=== PATIENT | female | born 1970 | race Caucasian/White ===

== ENCOUNTER 2018-10-01 12:30 | Outpatient (CLI) | payer BC ==
--- NOTE | 2018-10-01 12:53 | RAD ---
EXAM: Chest Two Views 10/01/2018 12:50 PM HISTORY: Chronic cough COMPARISON: None. FINDINGS: Heart: Normal in size and contour. Pulmonary vessels: Normal. Costophrenic angles: Clear. Lungs: No confluent pneumonia, overt edema, pleural effusion, or other acute process. Pneumothorax: None. Osseous structures:No acute osseous abnormality is evident. There is mild thoracic scoliosis. There i s scattered degenerative and osteoarthritic change present. Additional findings: None. IMPRESSION: No significant acute intrathoracic disease.
== END 2018-10-01 12:31 | disposition home or self-care (01) ==
LOC: BICRAD 12:30
PROVIDERS: ATTEND Internal Medicine
DX: R05 Cough (principal)
CPT/HCPCS: 71046

== ENCOUNTER 2018-12-25 15:01 | Outpatient (CLI) | payer BC ==
--- NOTE | 2018-12-25 15:59 | ULT ---
EXAM: Right lower extremity venous Doppler US HISTORY: Right lower extremity pain, long airplane flight FINDINGS: Grayscale, color-flow, Doppler evaluation, spectral analysis of the right lower extremity venous stru ctures is performed with 2-D imaging. The right common femoral, superficial femoral, popliteal, posterior tibial, proximal greater saphenous and profunda femoral veins are imaged. There is normal luminal compressibility, flow, and augmentation the visualized deep venous structures of the right lower extremity. IMPRESSION: No evidence of a deep vein thrombosis in the right lower extremity.
== END 2018-12-25 15:02 | disposition home or self-care (01) ==
LOC: SCSULT 15:01
PROVIDERS: ATTEND Orthopaedic Surgery
DX: S93.401A Sprain of unspecified ligament of right ankle, initial encounter (principal); S82.831A Other fracture of upper and lower end of right fibula, initial encounter for closed fracture

== ENCOUNTER 2018-12-26 11:42 | Outpatient (CLI) | payer BC ==
--- NOTE | 2018-12-26 13:24 | RAD ---
LUMBAR SPINE SERIES TWO VIEWS: History: Low back pain, worsening over the last 2-3 years with weakness down both legs. FINDINGS: The vertebral bodies maintain normal height. Tiny osteophytes are seen along the course of the spine with minimal disc narrowing at L5-S1. Some mild degenerative facet changes are noted. Pedicles appear intact. Slight rotatory scoliosis which could possibly be positional. IMPRESSION: Minimal arthritic changes of the spine. POS: [facility]
== END 2018-12-26 11:43 | disposition home or self-care (01) ==
LOC: BICRAD 11:42
PROVIDERS: ATTEND Internal Medicine
DX: M54.5 Low back pain (principal); M47.816 Spondylosis without myelopathy or radiculopathy, lumbar region; E55.9 Vitamin D deficiency, unspecified; R19.7 Diarrhea, unspecified; R20.2 Paresthesia of skin; R29.898 Other symptoms and signs involving the musculoskeletal system
CPT/HCPCS: 36415; 72100; 80053; 82306; 82607; 82785; 85025; 86160; 86225; 86235; 86376

== ENCOUNTER 2019-03-10 08:17 | Outpatient (CLI) | payer BC ==
--- NOTE | 2019-03-10 13:46 | RAD ---
SMALL BOWEL SERIES: HISTORY: Chronic diarrhea. FINDINGS: The patient was given oral contrast by mouth. There is transit of the contrast through the small bow el entering the colon at 1 hour. No evidence for small bowel dilatation. No mucosal thickening. No stricture, ulcer, or mass. Terminal ileum is normal. IMPRESSION: Normal small bowel series. POS: [facility]
== END 2019-03-10 08:18 | disposition home or self-care (01) ==
LOC: RAD 08:17
PROVIDERS: ATTEND Internal Medicine
DX: K52.9 Noninfective gastroenteritis and colitis, unspecified (principal); R63.4 Abnormal weight loss
CPT/HCPCS: 74250

== ENCOUNTER 2019-07-03 14:30 | Outpatient (CLI) | payer BC ==
--- NOTE | 2019-07-03 15:46 | RAD ---
TWO VIEWS CHEST: 07/03/19 PROVIDED CLINICAL HISTORY: Shortness of breath. FINDINGS: Comparison 10/01/18. The cardiac and mediastinal silhouette is within normal limits. Lungs appear clear. No pleural fluid or pneumothorax apparent. IMPRESSION: No evidence for an acute cardiopulmonary process. POS: [facility]
== END 2019-07-03 14:31 | disposition home or self-care (01) ==
LOC: BICRAD 14:30
PROVIDERS: ATTEND Internal Medicine
DX: R06.09 Other forms of dyspnea (principal)
CPT/HCPCS: 71046

== ENCOUNTER 2021-06-22 12:00 | Outpatient (CLI) | payer BC | END 2021-06-22 12:01 | disposition home or self-care (01) | LOC: BICMAMMO 12:00 | PROVIDERS: ATTEND Internal Medicine | DX: Z12.31 Encounter for screening mammogram for malignant neoplasm of breast (principal); N63.21 Unspecified lump in the left breast, upper outer quadrant; Z80.3 Family history of malignant neoplasm of breast | CPT/HCPCS: 77063; 77067 ==

== ENCOUNTER 2021-06-27 08:02 | Outpatient (CLI) | payer BC | END 2021-06-27 08:03 | disposition home or self-care (01) | LOC: BICULT 08:02 | PROVIDERS: ATTEND Internal Medicine | DX: N63.20 Unspecified lump in the left breast, unspecified quadrant (principal) ==

== ENCOUNTER 2022-01-31 09:14 | Outpatient (CLI) | payer BC | END 2022-01-31 09:15 | disposition home or self-care (01) | LOC: BICMAMMO 09:14 | PROVIDERS: ATTEND Internal Medicine | DX: N63.21 Unspecified lump in the left breast, upper outer quadrant (principal) | CPT/HCPCS: G0279 ==

== ENCOUNTER 2022-08-24 09:41 | Outpatient (CLI) | payer BC | END 2022-08-24 09:42 | disposition home or self-care (01) | LOC: BICMRI 09:41 | PROVIDERS: ATTEND Internal Medicine | DX: Z12.39 Encounter for other screening for malignant neoplasm of breast (principal) | CPT/HCPCS: A9577; C8908 ==

== ENCOUNTER 2023-08-23 09:58 | Outpatient (CLI) | payer BC | END 2023-08-23 09:59 | disposition home or self-care (01) | LOC: RAD 09:58 | PROVIDERS: ATTEND Internal Medicine | DX: J40 Bronchitis, not specified as acute or chronic (principal) | CPT/HCPCS: 71046 ==

== ENCOUNTER 2023-08-23 11:03 | Outpatient (CLI) | payer BC ==
[2023-08-23] MEDS ORDERED: Iopamidol 370 76% 100 ML VIAL ONE (12:27)
[2023-08-23] MEDS ORDERED: GASTROGRAFIN 30 ML BOT ONE (12:27)
== END 2023-08-23 11:04 | disposition home or self-care (01) ==
LOC: CT 11:03
PROVIDERS: ATTEND Internal Medicine
DX: R10.32 Left lower quadrant pain (principal); K57.32 Diverticulitis of large intestine without perforation or abscess without bleeding
CPT/HCPCS: 74177; Q9963; Q9967